=== PATIENT | female | born 1980 | race Two or more races ===

== ENCOUNTER 2018-05-30 06:55 | Emergency (ER) | payer MEDICAID ==
[~2018-05-30] VITALS: Ht 165.1 cm; Wt 673.0 kg
[2018-05-30] MEDS ORDERED: ACETAMINOPHEN 325MG TABLET PO ONE (08:30)
[2018-05-30 09:35] LABS: BASOPHILS % 0.3 % (0.0-2.0); EOSINOPHILS % 0.2 % (0.0-5.0); HEMATOCRIT. 38.9 % (36.0-48.0); HEMOGLOBIN. 12.3 g/dL (12.0-16.0); LYMPHOCYTES % 10.4 % (20.0-50.0); MEAN CORPUSCULAR HEMOGLOBIN 26.3 pg (28.0-32.0); MEAN CORPUSCULAR VOLUME 83.2 fL (81.0-99.0); MEAN PLATELET VOLUME 8.5 fl (7.4-10.4); MONOCYTES % 4.9 % (2.0-8.0); NEUTROPHILS % 84.2 % (40.0-76.0); PLATELET 258 x1000/uL (130-400); RED BLOOD CELL COUNT 4.67 mill/uL (4.2-5.4); RED CELL DISTRIBUTION WIDTH 17.6 % (11.6-14.6)
[2018-05-30 09:36] LABS: CHLORIDE 110 mEq/L (98-107)
[2018-05-30 10:04] LABS: B-HCG QUANTITATIVE 2200 mIU/mL (<3)
[2018-05-30] MEDS ORDERED: MORPHINE SULFATE 4 MG/ML CPJ (NOT FOR IM USE) IV ONE (11:15)
[2018-05-30] MEDS ORDERED: DEXT 5%/LR + PITOCIN 20UNITS/L 1,000 ML IV ONE (11:15)
[2018-05-30 14:27] LABS: CLARITY URINE TURBID (CLEAR); COLOR URINE BLOODY (YELLOW); KETONES URINE TRACE (NEGATIVE); LEUKOCYTE ESTERASE URINE 1+ (NEGATIVE); NITRITE URINE NEGATIVE (NEGATIVE); OCCULT BLOOD URINE 3+ (NEGATIVE); PH URINE 5.5 (4.5-8.0); PROTEIN URINE 2+ (NEGATIVE); SPECIFIC GRAVITY URINE 1.025 (1.005-1.030); UROBILINOGEN URINE 0.2 E.U./dL (0.2-1.0)
[2018-05-30 16:36] VITALS: BP 122/61
== END 2018-05-30 16:51 | disposition home or self-care (01) ==
LOC: ER 06:55
DX: O03.4 Incomplete spontaneous abortion without complication (principal); O09.529 Supervision of elderly multigravida, unspecified trimester; Z90.49 Acquired absence of other specified parts of digestive tract; Z3A.18 18 weeks gestation of pregnancy
CPT/HCPCS: 36415; 76801; 76817; 80053; 81003; 84702; 85025; 86850; 86900; 86901; 96365; 96366; 96375; 99284; J2270; J2590